=== PATIENT | female | born 1940 | race Caucasian/White ===

== ENCOUNTER 2018-05-18 09:21 | Inpatient (IN) | payer MEDICARE ==
[~2018-05-18] VITALS: Ht 160 cm; Wt 74.6 kg
[~2018-05-18 09:21] MED LIST: HYDR12.53 PO; OXYC1TAB7 PO
[2018-05-18] MEDS ORDERED: ONDANSETRON 2MG/ML, 2ML ONE (09:50)
[2018-05-18] MEDS ORDERED: ASPIRIN 81 MG TABLET CHEW ONE (09:51)
[2018-05-18] MEDS ORDERED: NITROGLYCERIN SINGLE TAB 0.4 MG SL ONE (09:51)
[2018-05-18] MEDS ORDERED: MORPHINE SULFATE 4 MG/ML, 1ML ONE ×3 (09:52→12:06)
[2018-05-18] MEDS ORDERED: ONDANSETRON 2MG/ML, 2ML IVPush ONE (10:00)
[2018-05-18] MEDS ORDERED: NITROGLYCERIN SINGLE TAB 0.4 MG SL PRN (10:00)
[2018-05-18] MEDS ORDERED: ASPIRIN 325 MG TABLET PO ONE (10:00)
[2018-05-18 10:05] LABS: BASOPHILS # (AUTO) 0.04 x10^3/uL (0-0.1); BASOPHILS % (AUTO) 0 % (0-1); EOSINOPHILS # (AUTO) 0.12 x10^3/uL (0-0.4); EOSINOPHILS % (AUTO) 1 % (1-7); LYMPHOCYTES # (AUTO) 1.73 x10^3/uL (1-3.4); LYMPHOCYTES % (AUTO) 16 % (22-44); MD NO; MEAN CORPUSCULAR HEMOGLOBIN 28.5 pg (27.0-34.8); MEAN CORPUSCULAR HGB CONC 32.9 g/dL (32.4-35.8); MEAN CORPUSCULAR VOLUME 86.5 fL (80-100); MEAN PLATELET VOLUME 8.8 fL (7.4-10.4); MONOCYTES # (AUTO) 0.61 x10^3/uL (0.2-0.8); MONOCYTES % (AUTO) 6 % (2-9); NEUTROPHILS # (AUTO) 8.16 x10^3/uL (1.8-6.8); NEUTROPHILS % (AUTO) 77 % (42-75); PLATELET COUNT 237 x10^3/uL (130-400); RED BLOOD COUNT 4.69 x10^6/uL (3.82-5.3); RED CELL DISTRIBUTION WIDTH 15.2 % (9.6-15.2)
[2018-05-18] MEDS: MORPHINE SULFATE 4 MG/ML, 1ML IVPush PRN ×2 (10:06→10:47)
[2018-05-18 10:19] LABS: ALBUMIN 3.8 g/dL (3.4-5.0); ANION GAP 10 mmol/L (5-15); CHLORIDE 111 mmol/L (98-107); CREATININE 0.93 mg/dL (0.55-1.02)
[2018-05-18 10:22] LABS: TROPONIN I < 0.015 ng/mL (0.000-0.045)
[2018-05-18] MEDS ORDERED: LABETALOL 5MG/ML, 20ML ONE ×2 (11:20→11:38)
[2018-05-18] MEDS ORDERED: OMNIPAQUE 350 MG/ML, 100ML BOTTLE ONE (11:30)
[2018-05-18] MEDS ORDERED: LABETALOL 5MG/ML, 20ML IVPush ONE ×2 (11:30→12:00)
[2018-05-18] MEDS ORDERED: ESMOLOL/NS PMX 250 ML IV PRN (11:30)
[2018-05-18] MEDS ORDERED: ONDANSETRON 2MG/ML, 2ML IVPush PRN (12:00)
[2018-05-18] MEDS ORDERED: POLYETHYLENE GLYCOL 17 GM PACKET PO PRN (12:00)
[2018-05-18] MEDS ORDERED: OXYcodone IR 5MG TABLET PO PRN (12:00)
[2018-05-18] MEDS ORDERED: ESMOLOL IV ONE (12:00)
[2018-05-18] MEDS ORDERED: morphine SULFATE 10 MG/ML, 1ML IVPush ONE (12:00)
[2018-05-18] MEDS ORDERED: LORazepam 2 MG/ML, 1ML IVPush PRN (12:00)
[2018-05-18] MEDS ORDERED: ACETAMINOPHEN 325 MG TABLET PO PRN (12:00)
[2018-05-18] MEDS ORDERED: ONDANSETRON ODT 4 MG PO PRN (12:00)
[2018-05-18] MEDS: SODIUM CHLORIDE 0.9% 1,000 ML IV SCH ×2 (12:12→21:05)
[2018-05-18 12:44] LABS: MICROSCOPIC NOT IND
[2018-05-18 12:46] LABS: CULTURE INDICATED? NO
[2018-05-18 12:55] VITALS: BP 149/82
[2018-05-18] MEDS ORDERED: LIDOCAINE-MPF 1%, 2ML ONE (14:25)
[2018-05-18] MEDS: ESMOLOL/NS PMX 250 ML IV PRN ×3 (17:13→22:48)
[2018-05-18 18:41] LABS: TROPONIN I < 0.015 ng/mL (0.000-0.045)
[2018-05-18] MEDS ORDERED: FAMOTIDINE 20 MG/2 ML IVPush SCH (21:00)
[2018-05-19] MEDS: ESMOLOL/NS PMX 250 ML IV PRN ×11 (01:10→22:29)
[2018-05-19 01:52] LABS: TROPONIN I < 0.015 ng/mL (0.000-0.045)
[2018-05-19 04:11] LABS: BASOPHILS # (AUTO) 0.11 x10^3/uL (0-0.1); BASOPHILS % (AUTO) 1 % (0-1); EOSINOPHILS % (AUTO) 0 % (1-7); LYMPHOCYTES # (AUTO) 0.75 x10^3/uL (1-3.4); LYMPHOCYTES % (AUTO) 8 % (22-44); MD NO; MEAN CORPUSCULAR HEMOGLOBIN 29.3 pg (27.0-34.8); MEAN CORPUSCULAR HGB CONC 33.1 g/dL (32.4-35.8); MEAN CORPUSCULAR VOLUME 88.5 fL (80-100); MEAN PLATELET VOLUME 8.9 fL (7.4-10.4); MONOCYTES # (AUTO) 0.31 x10^3/uL (0.2-0.8); MONOCYTES % (AUTO) 3 % (2-9); NEUTROPHILS # (AUTO) 8.77 x10^3/uL (1.8-6.8); NEUTROPHILS % (AUTO) 88 % (42-75); PLATELET COUNT 184 x10^3/uL (130-400); RED BLOOD COUNT 3.91 x10^6/uL (3.82-5.3); RED CELL DISTRIBUTION WIDTH 15.3 % (9.6-15.2)
[2018-05-19 04:24] LABS: ALBUMIN 2.9 g/dL (3.4-5.0); ANION GAP 6 mmol/L (5-15); CHLORIDE 120 mmol/L (98-107)
[2018-05-19 04:29] LABS: ALANINE AMINOTRANSFERASE 22 U/L (12-78); ALKALINE PHOSPHATASE 93 U/L (45-117); BILIRUBIN,TOTAL 0.6 mg/dL (0.2-1.0); CHOL/HDL RATIO 3.6; CHOLESTEROL, TOTAL 164 mg/dL (140-239); CREATININE 1.01 mg/dL (0.55-1.02); HDL CHOL % 27 % (28-40); HDL CHOLESTEROL (DIRECT) 45 mg/dL (40-60); LDL CHOLESTEROL,CALCULATED 94 mg/dL (54-169); LDL/HDL RATIO 2.1 (0.5-3.0); TOTAL PROTEIN 6.2 g/dL (6.4-8.2); TRIGLYCERIDES 127 mg/dL (50-200); VLDL CHOLESTEROL 25 mg/dL (0-25)
[2018-05-19] MEDS: SODIUM CHLORIDE 0.9% 1,000 ML IV SCH (07:12)
[2018-05-19] MEDS: SENNA/DOCUSATE TABLET PO SCH (07:14)
[2018-05-19] MEDS: CARVEDILOL 6.25 MG TABLET PO SCH ×2 (09:04→16:14)
[2018-05-19] MEDS: ZIPRASIDONE 20 MG INJ IM PRN (16:52)
[2018-05-19] MEDS: ROPINIROLE 1MG TABLET PO SCH (19:56)
[2018-05-19 22:31] LABS: BASOPHILS # (AUTO) 0.02 x10^3/uL (0-0.1); BASOPHILS % (AUTO) 0 % (0-1); EOSINOPHILS % (AUTO) 1 % (1-7); LYMPHOCYTES # (AUTO) 0.86 x10^3/uL (1-3.4); LYMPHOCYTES % (AUTO) 7 % (22-44); MD NO; MEAN CORPUSCULAR HGB CONC 33.2 g/dL (32.4-35.8); MEAN CORPUSCULAR VOLUME 87.3 fL (80-100); MEAN PLATELET VOLUME 9.1 fL (7.4-10.4); MONOCYTES # (AUTO) 0.76 x10^3/uL (0.2-0.8); MONOCYTES % (AUTO) 6 % (2-9); NEUTROPHILS # (AUTO) 11.56 x10^3/uL (1.8-6.8); NEUTROPHILS % (AUTO) 87 % (42-75); PLATELET COUNT 185 x10^3/uL (130-400); RED BLOOD COUNT 3.74 x10^6/uL (3.82-5.3); RED CELL DISTRIBUTION WIDTH 15.2 % (9.6-15.2)
[2018-05-19 22:38] LABS: ALANINE AMINOTRANSFERASE 17 U/L (12-78); ALBUMIN 2.7 g/dL (3.4-5.0); ANION GAP 8 mmol/L (5-15); CHLORIDE 119 mmol/L (98-107); CREATININE 0.87 mg/dL (0.55-1.02)
[2018-05-19 22:40] LABS: ALKALINE PHOSPHATASE 81 U/L (45-117); BILIRUBIN,TOTAL 0.5 mg/dL (0.2-1.0); TOTAL PROTEIN 5.8 g/dL (6.4-8.2)
[2018-05-19] MEDS: LABETALOL 200 MG TABLET PO SCH (23:00)
[2018-05-19] MEDS ORDERED: FUROSEMIDE 40 MG/4 ML IV ONE (23:00)
[2018-05-20] MEDS: ZIPRASIDONE 20 MG INJ IM PRN ×3 (00:24→18:02)
[2018-05-20] MEDS: ESMOLOL/NS PMX 250 ML IV PRN ×11 (00:39→22:04)
[2018-05-20 04:27] LABS: ANION GAP 10 mmol/L (5-15); CALCIUM 7.9 mg/dL (8.5-10.1); CHLORIDE 121 mmol/L (98-107); CREATININE 0.95 mg/dL (0.55-1.02)
[2018-05-20] MEDS: CARVEDILOL 6.25 MG TABLET PO SCH ×2 (05:16→16:06)
[2018-05-20] MEDS ORDERED: FUROSEMIDE 40 MG/4 ML IV ONE (05:30)
[2018-05-20] MEDS: LABETALOL 200 MG TABLET PO SCH ×2 (08:00→17:55)
[2018-05-20] MEDS: METOLAZONE 5 MG TABLET PO SCH ×2 (09:00→22:04)
[2018-05-20] MEDS: SENNA/DOCUSATE TABLET PO SCH (09:00)
[2018-05-20] MEDS: FUROSEMIDE 40 MG/4 ML IV SCH ×2 (11:12→22:37)
[2018-05-20] MEDS ORDERED: ETOMIDATE 40 MG/20 ML ONE (12:00)
[2018-05-20] MEDS ORDERED: MIDAZOLAM 1 MG/ML, 5ML ONE (12:00)
[2018-05-20] MEDS ORDERED: PROPOFOL 10 MG/ML, 100ML IV ONE (12:00)
[2018-05-20] MEDS: niCARDipine 100 MG in SODIUM CHLORIDE 0.9% 210 ML IV PRN (18:48)
[2018-05-20] MEDS ORDERED: PHARMACY MAY ADJ FOR RENAL FX MC SCH (21:00)
[2018-05-20] MEDS ORDERED: LIDOCAINE-MPF 1%, 2ML ENDO PRN (21:00)
[2018-05-20] MEDS: FAMOTIDINE 20 MG/2 ML IV SCH (22:04)
[2018-05-20] MEDS: CEFTRIAXONE 1,000 MG in SODIUM CHLORIDE 0.9% 50 ML IV SCH (22:04)
[2018-05-20] MEDS: ROPINIROLE 1MG TABLET PO SCH (22:04)
[2018-05-20] MEDS: METRONIDAZOLE PMX 500MG/100ML 100 ML IV SCH (22:47)
[2018-05-20] MEDS: PROPOFOL 100 ML IV PRN (22:48)
[2018-05-21] MEDS: PROPOFOL 100 ML IV PRN ×5 (01:12→21:02)
[2018-05-21] MEDS: ESMOLOL/NS PMX 250 ML IV PRN ×4 (02:20→19:19)
[2018-05-21 04:20] LABS: MEAN CORPUSCULAR HEMOGLOBIN 29.8 pg (27.0-34.8); MEAN CORPUSCULAR HGB CONC 34.2 g/dL (32.4-35.8); MEAN CORPUSCULAR VOLUME 87.4 fL (80-100); MEAN PLATELET VOLUME 9.1 fL (7.4-10.4); PLATELET COUNT 186 x10^3/uL (130-400); RED BLOOD COUNT 3.68 x10^6/uL (3.82-5.3); RED CELL DISTRIBUTION WIDTH 14.8 % (9.6-15.2)
[2018-05-21 04:37] LABS: ANION GAP 11 mmol/L (5-15); CALCIUM 8.2 mg/dL (8.5-10.1); CHLORIDE 116 mmol/L (98-107)
[2018-05-21 04:38] LABS: CREATININE 1.02 mg/dL (0.55-1.02)
[2018-05-21 05:15] LABS: BASOPHILS # (AUTO) 0.14 x10^3/uL (0-0.1); BASOPHILS % (AUTO) 1 % (0-1); EOSINOPHILS % (AUTO) 0 % (1-7); LYMPHOCYTES # (AUTO) 0.94 x10^3/uL (1-3.4); LYMPHOCYTES % (AUTO) 7 % (22-44); MD SCAN; MONOCYTES # (AUTO) 1.67 x10^3/uL (0.2-0.8); MONOCYTES % (AUTO) 12 % (2-9); NEUTROPHILS # (AUTO) 11.29 x10^3/uL (1.8-6.8); NEUTROPHILS % (AUTO) 80 % (42-75)
[2018-05-21] MEDS: CARVEDILOL 6.25 MG TABLET PO SCH ×2 (05:18→18:02)
[2018-05-21] MEDS: METRONIDAZOLE PMX 500MG/100ML 100 ML IV SCH ×3 (05:18→21:12)
[2018-05-21] MEDS ORDERED: POTASSIUM CHLORIDE 10% 40 MEQ/30 ML UDC PO ONE ×2 (07:00→11:00)
[2018-05-21] MEDS ORDERED: MAGNESIUM SULFATE PMX 2GM/50ML 50 ML IV ONE (07:00)
[2018-05-21] MEDS: LABETALOL 200 MG TABLET PO SCH ×2 (07:34→18:03)
[2018-05-21] MEDS: METOLAZONE 5 MG TABLET PO SCH ×2 (10:11→21:02)
[2018-05-21] MEDS: FAMOTIDINE 20 MG/2 ML IV SCH ×2 (10:12→21:02)
[2018-05-21] MEDS: SENNA/DOCUSATE TABLET PO SCH (10:12)
[2018-05-21] MEDS: FUROSEMIDE 40 MG/4 ML IV SCH ×2 (11:16→21:02)
[2018-05-21] MEDS: MORPHINE SULFATE 4 MG/ML, 1ML IVPush PRN (11:16)
[2018-05-21] MEDS: ROPINIROLE 1MG TABLET PO SCH (21:02)
[2018-05-21] MEDS: CEFTRIAXONE 1,000 MG in SODIUM CHLORIDE 0.9% 50 ML IV SCH (21:03)
[2018-05-22] MEDS: PROPOFOL 100 ML IV PRN ×4 (01:28→20:57)
[2018-05-22] MEDS: MORPHINE SULFATE 4 MG/ML, 1ML IVPush PRN (02:38)
[2018-05-22 04:08] LABS: BASOPHILS # (AUTO) 0.02 x10^3/uL (0-0.1); BASOPHILS % (AUTO) 0 % (0-1); EOSINOPHILS % (AUTO) 0 % (1-7); LYMPHOCYTES # (AUTO) 0.86 x10^3/uL (1-3.4); LYMPHOCYTES % (AUTO) 12 % (22-44); MD NO; MEAN CORPUSCULAR HEMOGLOBIN 29.7 pg (27.0-34.8); MEAN CORPUSCULAR HGB CONC 34.3 g/dL (32.4-35.8); MEAN CORPUSCULAR VOLUME 86.5 fL (80-100); MEAN PLATELET VOLUME 9.9 fL (7.4-10.4); MONOCYTES % (AUTO) 11 % (2-9); NEUTROPHILS # (AUTO) 5.32 x10^3/uL (1.8-6.8); NEUTROPHILS % (AUTO) 76 % (42-75); PLATELET COUNT 162 x10^3/uL (130-400); RED BLOOD COUNT 3.75 x10^6/uL (3.82-5.3); RED CELL DISTRIBUTION WIDTH 15.1 % (9.6-15.2)
[2018-05-22 04:10] LABS: ALANINE AMINOTRANSFERASE 26 U/L (12-78); ALBUMIN 2.3 g/dL (3.4-5.0); ANION GAP 10 mmol/L (5-15); CALCIUM 8.2 mg/dL (8.5-10.1); CHLORIDE 113 mmol/L (98-107); CREATININE 1.47 mg/dL (0.55-1.02)
[2018-05-22 04:12] LABS: ALKALINE PHOSPHATASE 75 U/L (45-117); BILIRUBIN,TOTAL 0.4 mg/dL (0.2-1.0); TOTAL PROTEIN 5.5 g/dL (6.4-8.2)
[2018-05-22] MEDS ORDERED: POTASSIUM CHLORIDE 40 MEQ in SODIUM CHLORIDE 0.9% 500 ML IV ONE (04:30)
[2018-05-22] MEDS: METRONIDAZOLE PMX 500MG/100ML 100 ML IV SCH ×3 (05:05→21:11)
[2018-05-22] MEDS: CARVEDILOL 6.25 MG TABLET PO SCH (05:15)
[2018-05-22] MEDS ORDERED: POTASSIUM CHLORIDE 10% 40 MEQ/30 ML UDC PO ONE ×3 (07:00→16:00)
[2018-05-22] MEDS: SENNA/DOCUSATE TABLET PO SCH (08:06)
[2018-05-22] MEDS: LABETALOL 200 MG TABLET PO SCH ×2 (08:06→17:56)
[2018-05-22] MEDS ORDERED: CARVEDILOL 6.25 MG TABLET PO ONE (08:30)
[2018-05-22] MEDS: METOLAZONE 5 MG TABLET PO SCH ×2 (09:27→20:49)
[2018-05-22] MEDS: ESMOLOL/NS PMX 250 ML IV PRN (10:40)
[2018-05-22] MEDS: CARVEDILOL 12.5 MG TABLET PO SCH (17:56)
[2018-05-22] MEDS: ROPINIROLE 1MG TABLET PO SCH (20:49)
[2018-05-22] MEDS: CEFTRIAXONE 1,000 MG in SODIUM CHLORIDE 0.9% 50 ML IV SCH (20:50)
[2018-05-22] MEDS: FAMOTIDINE 20 MG/2 ML IV SCH (20:58)
[2018-05-23] MEDS: PROPOFOL 100 ML IV PRN ×4 (02:53→22:54)
[2018-05-23] MEDS: ESMOLOL/NS PMX 250 ML IV PRN ×3 (03:34→22:54)
[2018-05-23 04:39] LABS: BASOPHILS # (AUTO) 0.03 x10^3/uL (0-0.1); BASOPHILS % (AUTO) 1 % (0-1); EOSINOPHILS # (AUTO) 0.12 x10^3/uL (0-0.4); EOSINOPHILS % (AUTO) 2 % (1-7); LYMPHOCYTES # (AUTO) 1.26 x10^3/uL (1-3.4); LYMPHOCYTES % (AUTO) 17 % (22-44); MD NO; MEAN CORPUSCULAR HEMOGLOBIN 29.7 pg (27.0-34.8); MEAN CORPUSCULAR HGB CONC 33.8 g/dL (32.4-35.8); MEAN CORPUSCULAR VOLUME 87.9 fL (80-100); MEAN PLATELET VOLUME 9.7 fL (7.4-10.4); MONOCYTES # (AUTO) 0.99 x10^3/uL (0.2-0.8); MONOCYTES % (AUTO) 14 % (2-9); NEUTROPHILS # (AUTO) 4.84 x10^3/uL (1.8-6.8); NEUTROPHILS % (AUTO) 67 % (42-75); PLATELET COUNT 156 x10^3/uL (130-400); RED BLOOD COUNT 3.84 x10^6/uL (3.82-5.3); RED CELL DISTRIBUTION WIDTH 15.2 % (9.6-15.2)
[2018-05-23 04:49] LABS: ANION GAP 8 mmol/L (5-15); CALCIUM 8.3 mg/dL (8.5-10.1); CHLORIDE 115 mmol/L (98-107)
[2018-05-23 04:55] LABS: CREATININE 1.05 mg/dL (0.55-1.02); TRIGLYCERIDES 164 mg/dL (50-200)
[2018-05-23] MEDS: METRONIDAZOLE PMX 500MG/100ML 100 ML IV SCH ×3 (05:03→22:08)
[2018-05-23] MEDS: CARVEDILOL 12.5 MG TABLET PO SCH (05:30)
[2018-05-23] MEDS: LABETALOL 200 MG TABLET PO SCH ×2 (07:49→17:22)
[2018-05-23] MEDS: SENNA/DOCUSATE TABLET PO SCH (09:00)
[2018-05-23] MEDS ORDERED: POTASSIUM CHLORIDE 20 MEQ TAB.ER.PRT PO SCH (10:00)
[2018-05-23] MEDS: AMLODIPINE 5 MG TABLET PO SCH (10:06)
[2018-05-23] MEDS: METOLAZONE 5 MG TABLET PO SCH ×2 (10:07→21:01)
[2018-05-23 10:20] LABS: ALBUMIN 2.3 g/dL (3.4-5.0)
[2018-05-23 10:28] LABS: BILIRUBIN, DIRECT 0.1 mg/dL (0.1-0.2); BILIRUBIN,INDIRECT 0.3 mg/dL (0.0-2.0); BILIRUBIN,TOTAL 0.4 mg/dL (0.2-1.0); TOTAL PROTEIN 5.5 g/dL (6.4-8.2)
[2018-05-23] MEDS: POTASSIUM CHLORIDE 10% 40 MEQ/30 ML UDC PO SCH ×3 (11:16→21:02)
[2018-05-23] MEDS: CEFTRIAXONE 1,000 MG in SODIUM CHLORIDE 0.9% 50 ML IV SCH (21:01)
[2018-05-23] MEDS: ROPINIROLE 1MG TABLET PO SCH (21:01)
[2018-05-23] MEDS: FAMOTIDINE 20 MG/2 ML IV SCH (21:03)
[2018-05-24] MEDS: LABETALOL 200 MG TABLET PO SCH ×2 (00:03→07:42)
[2018-05-24] MEDS: MORPHINE SULFATE 4 MG/ML, 1ML IVPush PRN ×2 (02:29→23:05)
[2018-05-24 05:18] LABS: BASOPHILS # (AUTO) 0.13 x10^3/uL (0-0.1); BASOPHILS % (AUTO) 2 % (0-1); EOSINOPHILS # (AUTO) 0.18 x10^3/uL (0-0.4); EOSINOPHILS % (AUTO) 2 % (1-7); LYMPHOCYTES # (AUTO) 1.35 x10^3/uL (1-3.4); LYMPHOCYTES % (AUTO) 17 % (22-44); MD SCAN; MEAN CORPUSCULAR HEMOGLOBIN 29.9 pg (27.0-34.8); MEAN CORPUSCULAR HGB CONC 34.6 g/dL (32.4-35.8); MEAN CORPUSCULAR VOLUME 86.6 fL (80-100); MEAN PLATELET VOLUME 10.9 fL (7.4-10.4); MONOCYTES # (AUTO) 0.98 x10^3/uL (0.2-0.8); MONOCYTES % (AUTO) 12 % (2-9); NEUTROPHILS % (AUTO) 67 % (42-75); PLATELET COUNT 165 x10^3/uL (130-400); RED BLOOD COUNT 3.49 x10^6/uL (3.82-5.3); RED CELL DISTRIBUTION WIDTH 15.2 % (9.6-15.2)
[2018-05-24] MEDS: ESMOLOL/NS PMX 250 ML IV PRN (05:23)
[2018-05-24] MEDS: METRONIDAZOLE PMX 500MG/100ML 100 ML IV SCH ×3 (05:46→21:36)
[2018-05-24] MEDS: niCARDipine 100 MG in SODIUM CHLORIDE 0.9% 210 ML IV PRN ×2 (05:54→13:44)
[2018-05-24 06:10] LABS: ANION GAP 7 mmol/L (5-15); CALCIUM 8.3 mg/dL (8.5-10.1); CHLORIDE 113 mmol/L (98-107); CREATININE 0.81 mg/dL (0.55-1.02)
[2018-05-24] MEDS ORDERED: ATROPINE SYRINGE 0.1 MG/ML, 10ML ONE (06:46)
[2018-05-24] MEDS ORDERED: LISINOPRIL 20 MG TABLET ONE (07:39)
[2018-05-24] MEDS: LISINOPRIL 20 MG TABLET PO SCH ×2 (07:42→20:21)
[2018-05-24] MEDS: SENNA/DOCUSATE TABLET PO SCH (09:00)
[2018-05-24] MEDS: AMLODIPINE 5 MG TABLET PO SCH (09:59)
[2018-05-24] MEDS: METOCLOPRAMIDE 5 MG/ML, 2ML IVPush SCH ×3 (09:59→21:35)
[2018-05-24] MEDS: METOLAZONE 5 MG TABLET PO SCH ×2 (09:59→20:22)
[2018-05-24] MEDS: POTASSIUM CHLORIDE 10% 40 MEQ/30 ML UDC PO SCH ×3 (09:59→20:21)
[2018-05-24] MEDS ORDERED: NITROGLYCERIN/D5W PMX 250 ML ONE (10:15)
[2018-05-24] MEDS ORDERED: NITROGLYCERIN/D5W PMX 250 ML IV PRN (10:30)
[2018-05-24] MEDS: CARVEDILOL 12.5 MG TABLET PO SCH (18:00)
[2018-05-24] MEDS: ROPINIROLE 1MG TABLET PO SCH (20:21)
[2018-05-24] MEDS: CEFTRIAXONE 1,000 MG in SODIUM CHLORIDE 0.9% 50 ML IV SCH (20:31)
[2018-05-25] MEDS: METOCLOPRAMIDE 5 MG/ML, 2ML IVPush SCH ×4 (03:30→20:32)
[2018-05-25 04:35] LABS: BASOPHILS # (AUTO) 0.13 x10^3/uL (0-0.1); BASOPHILS % (AUTO) 1 % (0-1); EOSINOPHILS # (AUTO) 0.18 x10^3/uL (0-0.4); EOSINOPHILS % (AUTO) 2 % (1-7); LYMPHOCYTES # (AUTO) 2.16 x10^3/uL (1-3.4); LYMPHOCYTES % (AUTO) 22 % (22-44); MD NO; MEAN CORPUSCULAR HGB CONC 33.2 g/dL (32.4-35.8); MEAN CORPUSCULAR VOLUME 87.4 fL (80-100); MEAN PLATELET VOLUME 10.1 fL (7.4-10.4); MONOCYTES # (AUTO) 1.27 x10^3/uL (0.2-0.8); MONOCYTES % (AUTO) 13 % (2-9); NEUTROPHILS # (AUTO) 6.29 x10^3/uL (1.8-6.8); NEUTROPHILS % (AUTO) 63 % (42-75); PLATELET COUNT 171 x10^3/uL (130-400); RED BLOOD COUNT 3.64 x10^6/uL (3.82-5.3); RED CELL DISTRIBUTION WIDTH 15.2 % (9.6-15.2)
[2018-05-25 04:40] LABS: ANION GAP 7 mmol/L (5-15); CALCIUM 8.2 mg/dL (8.5-10.1); CHLORIDE 113 mmol/L (98-107); CREATININE 0.74 mg/dL (0.55-1.02)
[2018-05-25] MEDS: MORPHINE SULFATE 4 MG/ML, 1ML IVPush PRN (05:47)
[2018-05-25] MEDS: METRONIDAZOLE PMX 500MG/100ML 100 ML IV SCH ×3 (05:58→21:16)
[2018-05-25] MEDS: CARVEDILOL 12.5 MG TABLET PO SCH ×2 (05:58→17:40)
[2018-05-25] MEDS: ZIPRASIDONE 20 MG INJ IM PRN ×2 (06:32→20:33)
[2018-05-25] MEDS: SENNA/DOCUSATE TABLET PO SCH (09:00)
[2018-05-25] MEDS: CHOLESTYRAMINE LIGHT 4GM PACKET PO SCH ×2 (09:37→21:16)
[2018-05-25] MEDS: FUROSEMIDE 20 MG/2 ML IV SCH ×2 (09:43→17:40)
[2018-05-25] MEDS: AMLODIPINE 5 MG TABLET PO SCH (10:56)
[2018-05-25] MEDS: POTASSIUM CHLORIDE 10% 40 MEQ/30 ML UDC PO SCH ×3 (10:56→20:31)
[2018-05-25] MEDS: LISINOPRIL 20 MG TABLET PO SCH ×2 (10:57→20:32)
[2018-05-25] MEDS: METOLAZONE 5 MG TABLET PO SCH ×2 (10:57→20:31)
[2018-05-25] MEDS: niCARDipine 100 MG in SODIUM CHLORIDE 0.9% 210 ML IV PRN (16:19)
[2018-05-25] MEDS: ROPINIROLE 1MG TABLET PO SCH (20:32)
[2018-05-25] MEDS: CEFTRIAXONE 1,000 MG in SODIUM CHLORIDE 0.9% 50 ML IV SCH (20:33)
[2018-05-25] MEDS: PROPOFOL 100 ML IV PRN (21:16)
[2018-05-26] MEDS: niCARDipine 100 MG in SODIUM CHLORIDE 0.9% 210 ML IV PRN ×2 (01:40→15:38)
[2018-05-26] MEDS: METOCLOPRAMIDE 5 MG/ML, 2ML IVPush SCH ×4 (03:37→20:48)
[2018-05-26 04:33] LABS: BASOPHILS # (AUTO) 0.07 x10^3/uL (0-0.1); BASOPHILS % (AUTO) 1 % (0-1); EOSINOPHILS # (AUTO) 0.09 x10^3/uL (0-0.4); EOSINOPHILS % (AUTO) 1 % (1-7); LYMPHOCYTES # (AUTO) 1.63 x10^3/uL (1-3.4); LYMPHOCYTES % (AUTO) 14 % (22-44); MD NO; MEAN CORPUSCULAR HEMOGLOBIN 28.8 pg (27.0-34.8); MEAN CORPUSCULAR HGB CONC 33.5 g/dL (32.4-35.8); MEAN CORPUSCULAR VOLUME 86.1 fL (80-100); MONOCYTES # (AUTO) 1.15 x10^3/uL (0.2-0.8); MONOCYTES % (AUTO) 10 % (2-9); NEUTROPHILS # (AUTO) 9.05 x10^3/uL (1.8-6.8); NEUTROPHILS % (AUTO) 75 % (42-75); PLATELET COUNT 201 x10^3/uL (130-400); RED BLOOD COUNT 3.86 x10^6/uL (3.82-5.3); RED CELL DISTRIBUTION WIDTH 15.3 % (9.6-15.2)
[2018-05-26 04:42] LABS: ANION GAP 9 mmol/L (5-15); CALCIUM 8.4 mg/dL (8.5-10.1); CHLORIDE 108 mmol/L (98-107); CREATININE 0.81 mg/dL (0.55-1.02); TRIGLYCERIDES 200 mg/dL (50-200)
[2018-05-26] MEDS: CARVEDILOL 12.5 MG TABLET PO SCH ×2 (05:09→17:21)
[2018-05-26] MEDS: POTASSIUM CHLORIDE 10% 40 MEQ/30 ML UDC PO SCH ×3 (05:09→20:47)
[2018-05-26] MEDS: METRONIDAZOLE PMX 500MG/100ML 100 ML IV SCH ×3 (05:10→22:05)
[2018-05-26] MEDS: SENNA/DOCUSATE TABLET PO SCH (08:24)
[2018-05-26] MEDS: AMLODIPINE 5 MG TABLET PO SCH (08:29)
[2018-05-26] MEDS: LISINOPRIL 20 MG TABLET PO SCH ×2 (08:29→20:48)
[2018-05-26] MEDS: METOLAZONE 5 MG TABLET PO SCH ×2 (08:30→20:48)
[2018-05-26] MEDS: FUROSEMIDE 20 MG/2 ML IV SCH ×2 (08:38→17:21)
[2018-05-26] MEDS: CHOLESTYRAMINE LIGHT 4GM PACKET PO SCH ×2 (09:28→20:48)
[2018-05-26] MEDS: ROPINIROLE 1MG TABLET PO SCH (20:48)
[2018-05-26] MEDS: CEFTRIAXONE 1,000 MG in SODIUM CHLORIDE 0.9% 50 ML IV SCH (20:49)
[2018-05-27 04:32] LABS: MEAN CORPUSCULAR HEMOGLOBIN 29.1 pg (27.0-34.8); MEAN CORPUSCULAR HGB CONC 33.3 g/dL (32.4-35.8); MEAN CORPUSCULAR VOLUME 87.3 fL (80-100); MEAN PLATELET VOLUME 9.8 fL (7.4-10.4); PLATELET COUNT 254 x10^3/uL (130-400); RED BLOOD COUNT 3.91 x10^6/uL (3.82-5.3); RED CELL DISTRIBUTION WIDTH 15.2 % (9.6-15.2)
[2018-05-27 04:41] LABS: ANION GAP 8 mmol/L (5-15); CALCIUM 8.3 mg/dL (8.5-10.1); CHLORIDE 106 mmol/L (98-107)
[2018-05-27 04:42] LABS: CREATININE 1.01 mg/dL (0.55-1.02)
[2018-05-27] MEDS: METOCLOPRAMIDE 5 MG/ML, 2ML IVPush SCH ×4 (04:47→21:23)
[2018-05-27 04:53] LABS: BASOPHILS # (AUTO) 0.08 x10^3/uL (0-0.1); BASOPHILS % (AUTO) 1 % (0-1); EOSINOPHILS # (AUTO) 0.08 x10^3/uL (0-0.4); EOSINOPHILS % (AUTO) 1 % (1-7); LYMPHOCYTES # (AUTO) 1.78 x10^3/uL (1-3.4); LYMPHOCYTES % (AUTO) 11 % (22-44); MD SCAN; MONOCYTES % (AUTO) 11 % (2-9); NEUTROPHILS % (AUTO) 77 % (42-75)
[2018-05-27] MEDS: CARVEDILOL 12.5 MG TABLET PO SCH ×2 (05:28→17:50)
[2018-05-27] MEDS: METRONIDAZOLE PMX 500MG/100ML 100 ML IV SCH (05:28)
[2018-05-27] MEDS: FUROSEMIDE 20 MG/2 ML IV SCH ×2 (06:28→17:51)
[2018-05-27] MEDS ORDERED: VANCOMYCIN PER PHARMACY MC PRN (08:30)
[2018-05-27] MEDS ORDERED: PHARMACOKINETIC MONITORING MC PRN (09:00)
[2018-05-27] MEDS: METOLAZONE 5 MG TABLET PO SCH ×2 (09:55→21:23)
[2018-05-27] MEDS: SENNA/DOCUSATE TABLET PO SCH (09:55)
[2018-05-27] MEDS: CHOLESTYRAMINE LIGHT 4GM PACKET PO SCH ×2 (09:55→21:23)
[2018-05-27] MEDS: MEROPENEM 1 GM in SODIUM CHLORIDE 0.9% 100 ML IV SCH ×2 (09:55→21:23)
[2018-05-27] MEDS: AMLODIPINE 5 MG TABLET PO SCH (09:56)
[2018-05-27] MEDS: POTASSIUM CHLORIDE 10% 40 MEQ/30 ML UDC PO SCH ×3 (09:56→21:23)
[2018-05-27] MEDS: LISINOPRIL 20 MG TABLET PO SCH ×2 (09:56→21:24)
[2018-05-27] MEDS: VANCOMYCIN 1,300 MG in SODIUM CHLORIDE 0.9% 250 ML IV SCH (12:27)
[2018-05-27 14:58] LABS: CULTURE INDICATED? YES; MICROSCOPIC INDICATED
[2018-05-27] MEDS: MORPHINE SULFATE 4 MG/ML, 1ML IVPush PRN (18:46)
[2018-05-27] MEDS: ROPINIROLE 1MG TABLET PO SCH (21:24)
[2018-05-28] MEDS: MORPHINE SULFATE 4 MG/ML, 1ML IVPush PRN (00:24)
[2018-05-28] MEDS: niCARDipine 100 MG in SODIUM CHLORIDE 0.9% 210 ML IV PRN (01:31)
[2018-05-28] MEDS: METOCLOPRAMIDE 5 MG/ML, 2ML IVPush SCH ×2 (03:37→09:44)
[2018-05-28 04:52] LABS: MEAN CORPUSCULAR HEMOGLOBIN 28.2 pg (27.0-34.8); MEAN CORPUSCULAR HGB CONC 32.3 g/dL (32.4-35.8); MEAN CORPUSCULAR VOLUME 87.4 fL (80-100); MEAN PLATELET VOLUME 9.8 fL (7.4-10.4); PLATELET COUNT 309 x10^3/uL (130-400); RED BLOOD COUNT 3.86 x10^6/uL (3.82-5.3); RED CELL DISTRIBUTION WIDTH 15.7 % (9.6-15.2)
[2018-05-28 05:02] LABS: CHLORIDE 107 mmol/L (98-107)
[2018-05-28 05:07] LABS: CALCIUM 8.8 mg/dL (8.5-10.1); CREATININE 1.05 mg/dL (0.55-1.02)
[2018-05-28 05:17] LABS: ANION GAP 6 mmol/L (5-15)
[2018-05-28 05:18] LABS: MD YES
[2018-05-28 05:21] LABS: EOS#(MANUAL) 0.38 x10^3/uL (0.0-0.4); EOS% (MANUAL) 2 % (1-7); LYMPH#(MANUAL) 2.08 x10^3/uL (1-3.4); LYMPHS% (MANUAL) 11 % (22-44); MONOS#(MANUAL) 1.51 x10^3/uL (0.3-2.7); MONOS% (MANUAL) 8 % (2-9); SEG#(MANUAL) 14.93 x10^3/uL (1.8-6.8); SEGS% (MANUAL) 79 % (42-75)
[2018-05-28 05:22] LABS: <PLATELET ESTIMATE> ADEQUATE; ANISOCYTOSIS 1+; LARGE PLATELETS 1+
[2018-05-28] MEDS: CARVEDILOL 12.5 MG TABLET PO SCH ×2 (05:56→18:22)
[2018-05-28] MEDS: FUROSEMIDE 20 MG/2 ML IV SCH ×2 (07:36→16:48)
[2018-05-28] MEDS ORDERED: CARVEDILOL 12.5 MG TABLET PO ONE (08:30)
[2018-05-28] MEDS: MEROPENEM 1 GM in SODIUM CHLORIDE 0.9% 100 ML IV SCH ×2 (08:38→20:54)
[2018-05-28] MEDS: POTASSIUM CHLORIDE 10% 40 MEQ/30 ML UDC PO SCH ×3 (08:42→20:55)
[2018-05-28] MEDS: SENNA/DOCUSATE TABLET PO SCH (08:43)
[2018-05-28] MEDS: METOLAZONE 5 MG TABLET PO SCH ×2 (08:43→20:56)
[2018-05-28] MEDS ORDERED: FAMOTIDINE 20 MG TABLET PO SCH (09:00)
[2018-05-28] MEDS: AMLODIPINE 5 MG TABLET PO SCH (09:44)
[2018-05-28] MEDS: FAMOTIDINE 40 MG/5 ML ORAL SUSP NG SCH ×2 (09:44→20:55)
[2018-05-28] MEDS: LISINOPRIL 20 MG TABLET PO SCH ×2 (09:47→20:55)
[2018-05-28] MEDS: VANCOMYCIN 1,300 MG in SODIUM CHLORIDE 0.9% 250 ML IV SCH (09:47)
[2018-05-28] MEDS ORDERED: FAMOTIDINE 20 MG TABLET ONE (20:50)
[2018-05-28] MEDS: ROPINIROLE 1MG TABLET PO SCH (20:56)
[2018-05-29 04:55] LABS: ANION GAP 6 mmol/L (5-15); CALCIUM 8.7 mg/dL (8.5-10.1); CHLORIDE 109 mmol/L (98-107)
[2018-05-29 04:59] LABS: CREATININE 1.14 mg/dL (0.55-1.02); TRIGLYCERIDES 105 mg/dL (50-200)
[2018-05-29 05:26] LABS: MEAN CORPUSCULAR HEMOGLOBIN 29.4 pg (27.0-34.8); MEAN CORPUSCULAR HGB CONC 33.4 g/dL (32.4-35.8); MEAN CORPUSCULAR VOLUME 87.9 fL (80-100); MEAN PLATELET VOLUME 10.6 fL (7.4-10.4); PLATELET COUNT 297 x10^3/uL (130-400); RED BLOOD COUNT 3.66 x10^6/uL (3.82-5.3); RED CELL DISTRIBUTION WIDTH 15.6 % (9.6-15.2)
[2018-05-29 06:01] LABS: BASOPHILS # (AUTO) 0.05 x10^3/uL (0-0.1); BASOPHILS % (AUTO) 0 % (0-1); EOSINOPHILS # (AUTO) 0.19 x10^3/uL (0-0.4); EOSINOPHILS % (AUTO) 1 % (1-7); LYMPHOCYTES # (AUTO) 1.68 x10^3/uL (1-3.4); LYMPHOCYTES % (AUTO) 11 % (22-44); MD SCAN; MONOCYTES # (AUTO) 1.63 x10^3/uL (0.2-0.8); MONOCYTES % (AUTO) 11 % (2-9); NEUTROPHILS # (AUTO) 11.77 x10^3/uL (1.8-6.8); NEUTROPHILS % (AUTO) 77 % (42-75)
[2018-05-29] MEDS: CARVEDILOL 12.5 MG TABLET PO SCH ×2 (06:03→17:03)
[2018-05-29] MEDS: FUROSEMIDE 20 MG/2 ML IV SCH (07:07)
[2018-05-29] MEDS: MEROPENEM 1 GM in SODIUM CHLORIDE 0.9% 100 ML IV SCH ×2 (08:11→21:26)
[2018-05-29] MEDS: SENNA/DOCUSATE TABLET PO SCH (08:14)
[2018-05-29] MEDS: POTASSIUM CHLORIDE 10% 40 MEQ/30 ML UDC PO SCH ×3 (08:14→21:26)
[2018-05-29] MEDS: FAMOTIDINE 40 MG/5 ML ORAL SUSP NG SCH ×2 (08:15→21:26)
[2018-05-29] MEDS: LISINOPRIL 20 MG TABLET PO SCH ×2 (08:15→21:00)
[2018-05-29] MEDS: AMLODIPINE 5 MG TABLET PO SCH (08:15)
[2018-05-29] MEDS: METOLAZONE 5 MG TABLET PO SCH ×2 (08:15→21:27)
[2018-05-29] MEDS: VANCOMYCIN 1,300 MG in SODIUM CHLORIDE 0.9% 250 ML IV SCH (10:35)
[2018-05-29] MEDS: ROPINIROLE 1MG TABLET PO SCH (21:27)
[2018-05-29] MEDS ORDERED: ALBUTEROL/IPRATROPIUM 2.5MG/0.5MG, 3 ML NPPB SCH (23:00)
[2018-05-29] MEDS ORDERED: ALBUTEROL/IPRATROPIUM 2.5MG/0.5MG, 3 ML NPPB PRN (23:00)
[2018-05-30 04:27] LABS: MEAN CORPUSCULAR HEMOGLOBIN 29.3 pg (27.0-34.8); MEAN CORPUSCULAR HGB CONC 33.5 g/dL (32.4-35.8); MEAN CORPUSCULAR VOLUME 87.5 fL (80-100); MEAN PLATELET VOLUME 9.7 fL (7.4-10.4); PLATELET COUNT 305 x10^3/uL (130-400); RED BLOOD COUNT 3.71 x10^6/uL (3.82-5.3); RED CELL DISTRIBUTION WIDTH 15.4 % (9.6-15.2)
[2018-05-30 04:28] LABS: ANION GAP 5 mmol/L (5-15); CALCIUM 9.1 mg/dL (8.5-10.1); CHLORIDE 112 mmol/L (98-107); CREATININE 0.94 mg/dL (0.55-1.02)
[2018-05-30 04:48] LABS: BASOPHILS # (AUTO) 0.05 x10^3/uL (0-0.1); BASOPHILS % (AUTO) 0 % (0-1); EOSINOPHILS # (AUTO) 0.27 x10^3/uL (0-0.4); EOSINOPHILS % (AUTO) 2 % (1-7); LYMPHOCYTES # (AUTO) 1.36 x10^3/uL (1-3.4); LYMPHOCYTES % (AUTO) 9 % (22-44); MD SCAN; MONOCYTES # (AUTO) 1.54 x10^3/uL (0.2-0.8); MONOCYTES % (AUTO) 11 % (2-9); NEUTROPHILS # (AUTO) 11.22 x10^3/uL (1.8-6.8); NEUTROPHILS % (AUTO) 78 % (42-75)
[2018-05-30] MEDS: CARVEDILOL 12.5 MG TABLET PO SCH ×2 (05:12→18:03)
[2018-05-30] MEDS: niCARDipine 100 MG in SODIUM CHLORIDE 0.9% 210 ML IV PRN (05:12)
[2018-05-30] MEDS: MEROPENEM 1 GM in SODIUM CHLORIDE 0.9% 100 ML IV SCH (08:55)
[2018-05-30] MEDS: LISINOPRIL 20 MG TABLET PO SCH (08:56)
[2018-05-30] MEDS: SENNA/DOCUSATE TABLET PO SCH (08:56)
[2018-05-30] MEDS: FAMOTIDINE 40 MG/5 ML ORAL SUSP NG SCH (08:56)
[2018-05-30] MEDS: METOLAZONE 5 MG TABLET PO SCH (08:56)
[2018-05-30] MEDS: AMLODIPINE 5 MG TABLET PO SCH (08:56)
[2018-05-30] MEDS ORDERED: FUROSEMIDE 20 MG/2 ML IV SCH (09:00)
[2018-05-30] MEDS: POTASSIUM CHLORIDE 10% 40 MEQ/30 ML UDC PO SCH (09:00)
[2018-05-30] MEDS ORDERED: SPIRONOLACTONE 25 MG TABLET PO SCH (11:00)
[2018-05-30] MEDS ORDERED: ENOXAPARIN 40 MG/0.4 ML SQ SCH (11:30)
[2018-05-30] MEDS ORDERED: ESMOLOL/NS PMX 250 ML IV PRN (13:00)
[2018-05-30] MEDS ORDERED: CARV12.543 PO (13:32)
[2018-05-30] MEDS ORDERED: AMLO5TAB2 PO (13:32)
[2018-05-30] MEDS ORDERED: POLY17PO5 PO (13:32)
[2018-05-30] MEDS ORDERED: SPIR25TA PO (13:32)
[2018-05-30] MEDS ORDERED: ESMOLOL (13:32)
[2018-05-30] MEDS ORDERED: HYDR-3343 PO (13:32)
[2018-05-30] MEDS ORDERED: TRAM50TA2 PO (13:32)
[2018-05-30] MEDS ORDERED: ACET325T14 PO (13:32)
[2018-05-30] MEDS ORDERED: ENOX40SY4 SQ (13:32)
[2018-05-30] MEDS ORDERED: ROPI1TAB PO (13:32)
[2018-05-30] MEDS ORDERED: FURO10VI37 IV (13:32)
[2018-05-30] MEDS ORDERED: LISI-170 PO (13:32)
[2018-05-30] MEDS ORDERED: FAMO40OR3 PO (13:32)
[2018-05-31] MEDS ORDERED: POTASSIUM CHLORIDE 10% 40 MEQ/30 ML UDC PO SCH (09:00)
== END 2018-05-30 20:23 | DRG 207 ==
LOC: ED 10:16 → EDIP 11:41 → CCU 13:03
PROVIDERS: ADMIT Internal Medicine; ATTEND Internal Medicine
PROC: 03HY32Z Insertion of Monitoring Device into Upper Artery, Percutaneous Approach (ICD-10-PCS; principal; 2018-05-18)
PROC: 0T9B70Z Drainage of Bladder with Drainage Device, Via Natural or Artificial Opening (ICD-10-PCS; 2018-05-18)
PROC: 5A1955Z Respiratory Ventilation, Greater than 96 Consecutive Hours (ICD-10-PCS; 2018-05-20)
PROC: 0BH17EZ Insertion of Endotracheal Airway into Trachea, Via Natural or Artificial Opening (ICD-10-PCS; 2018-05-20)
PROC: 0B9B8ZZ Drainage of Left Lower Lobe Bronchus, Via Natural or Artificial Opening Endoscopic (ICD-10-PCS; 2018-05-20)
PROC: 0B968ZZ Drainage of Right Lower Lobe Bronchus, Via Natural or Artificial Opening Endoscopic (ICD-10-PCS; 2018-05-20)
DX: J96.01 Acute respiratory failure with hypoxia (principal); I71.01 Dissection of thoracic aorta; E43 Unspecified severe protein-calorie malnutrition; G93.41 Metabolic encephalopathy; I50.33 Acute on chronic diastolic (congestive) heart failure; K85.90 Acute pancreatitis without necrosis or infection, unspecified; I16.1 Hypertensive emergency; N17.9 Acute kidney failure, unspecified; J98.11 Atelectasis; E87.2 Acidosis; R65.10 Systemic inflammatory response syndrome (SIRS) of non-infectious origin without acute organ dysfunction; Z99.11 Dependence on respirator [ventilator] status; I11.0 Hypertensive heart disease with heart failure; E87.8 Other disorders of electrolyte and fluid balance, not elsewhere classified; Z51.5 Encounter for palliative care; Z79.82 Long term (current) use of aspirin; Z79.899 Other long term (current) drug therapy; Z82.49 Family history of ischemic heart disease and other diseases of the circulatory system; Z88.0 Allergy status to penicillin; Z91.010 Allergy to peanuts; Z88.8 Allergy status to other drugs, medicaments and biological substances; Z91.018 Allergy to other foods; Z68.29 Body mass index [BMI] 29.0-29.9, adult
CPT/HCPCS: 31624; 36415; 36600; 71045; 71275; 74018; 80048; 80053; 80061; 80076; 80202; 81001; 81003; 82040; 82140; 82803; 83605; 83690; 83735; 83880; 84100; 84132; 84443; 84478; 84484; 85025; 86850; 86900; 86923; 87040; 87070; 87081; 87086; 87205; 93005; 93306; 93308; 93325; 93975; 94002; 94003; 96365; 96368; 96375; 96376; J0696; J1650; J1940; J2185; J2250; J2405; J2704; J3370; J3480; J3486; Q9967; J2060; J2270; J2765; J3475; J7030; J7040; J7050; S0028